=== PATIENT | female | born 1930 | race Caucasian/White ===

== ENCOUNTER 2016-12-28 10:49 | Emergency (ER) | payer MEDICARE, OTHER ==
[2016-12-28] MEDS ORDERED: ALTEPLASE 100 MG VIAL IV ONE ×3 (11:07→11:19)
[2016-12-28] MEDS ORDERED: ALTEPLASE 1 MG UNIT IV ONE (11:13)
[2016-12-28 11:14] LABS: Hematocrit 41.2 % (37.0-47.0); Hemoglobin 14.5 gm/dL (12.5-16.0); Mean Cell Volume 92.2 fl (78-100); Mean Corpuscular Hemoglobin 32.4 pg (27-31); Mean Corpuscular Hgb Conc 35.2 g/dl (32-36); Mean Platelet Volume 9.5 fl (6.0-9.5); Neutrophil # 9.6 K/mm3 (1.3-6.0); Neutrophil % 81.8 % (42-75.0); Platelet Count 358 K/mm3 (150-450); Red Blood Count 4.47 M/mm3 (4.2-5.4); Red Cell Distribution Width 12.4 % (11.5-14.0); White Blood Count 11.7 K/mm3 (4.0-10.5)
[2016-12-28 11:25] LABS: INR 0.98 INR (0.90-1.10); Prothrombin Time (Patient) 10.2 Seconds (9.4-11.4)
[2016-12-28 11:27] LABS: Albumin * 3.1 gm/dl (3.4-5.0); Anion Gap 14.6 mmol/L (6.8-13.8); BUN/Creatinine Ratio 15.3 (9.0-21.6); Bilirubin, Total 0.8 mg/dL (0.0-1.1); Ca. Corrected For Albumin 9.5 mg/dL (8.4-10.2); Calcium * 9.1 mg/dL (7.9-10.9); Carbon Dioxide 24.5 mmol/L (24-32.6); Potassium 5.1 mmol/L (3.4-4.6); Total Protein 6.9 gm/dL (6.2-8.2)
--- NOTE | 2016-12-28 11:45 | ERNOTE ---
Neuro HPI ER Record Presenting Symptoms: weakness, facial droop, impaired speech, difficulty walking Source: patient, family, EMS Exam Limitations: clinical condition Immunizations: IMMUNIZATION HX Immunizations Up to Date Yes History of Influenza Vaccine Yes Hx Pneumococcal Vaccination Yes Allergies/Adverse Reactions: Allergies Allergy/AdvReac Type Severity Reaction Status Date / Time No Known Allergies Allergy Unverified 12/28/16 11:04 Home Medications: HOME MEDICATIONS Aspirin [Ecotrin] 81 mg PO DAILY 12/12/13 [Last Taken 12/19/13 21:00] Biotin 1 mg PO DAILY 12/12/13 [Last Taken 12/12/13 0900] Lovastatin 40 mg PO DAILY 12/12/13 [Last Taken 12/12/13 09:00] Meloxicam [Mobic] 15 mg PO DAILY 12/12/13 [Last Taken 12/12/13 09:00] FLUoxetine HCL [Fluoxetine HCl] 20 mg PO DAILY 12/28/16 [Last Taken Unknown] Sulfamethoxazole/Trimethoprim [Bactrim Ds] 1 tab PO BID 12/28/16 [Last Taken Unknown] - History of Present Illness Narrative: We received varying reports as to the time of the onset of symptoms. However the daughter states that somewhere between 10 and actually 10:30 mother suddenly developed facial droop and right-sided weakness and speech that appeared to be somewhat impaired. Patient continues to have the right-sided weakness and right-sided facial droop and dysarthric speech. Prior to this episode mother was at her baseline and none of these symptoms are present according to the daughter. Onset: sudden onset Severity: severe - Character of Deficits Additional Deficits: Present: cannot walk, cannot stand Baseline Cognition: Present: alert, oriented x 4 Baseline Gait: Present: walks w/o assistance Associated Symptoms: Reports: none Review of Systems - Review of Systems Constitutional: Present: See HPI EYE: Present: no symptoms reported ENT: Present: no symptoms reported Respiratory: Present: no symptoms reported Cardiology: Present: no symptoms reported Gastrointestinal/Abdominal: Present: no symptoms reported Genitourinary: Present: no symptoms reported Musculoskeletal: Present: no symptoms reported Skin: Present: no symptoms reported Neurological: Present: See HPI Endocrine: Present: no symptoms reported Hematologic/Lymphatic: Present: no symptoms reported Psych: Present: no symptoms reported - Patient's Past Medical History Patient History - Medical: 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 Patient History - Cardiac/Respiratory: CVA/Stroke, Hypertension, Hyperlipidemia Patient History - Cancer: Melanoma Patient History - Surgical Procedures: Colonoscopy Patient History - Other: None LMP (females 10-50): Menopausal - Social History Living Situations: home Abuse History: No History of abuse Psych History: Hx of Depression, Current tx/ever been on anti-depressants or anti-anxiety meds Smoking Status: Never smoker Alcohol Use: none Drug Use: none - Immunizations Immunizations Up to Date: Yes Hx Pneumococcal Vaccination: Yes History of Influenza Vaccine: Yes Physical Exam - Physical Exam General Appearance: Present: wd/wn, alert, moderate distress Eye Exam: Normal inspection: bilateral, PERRL: bilateral Ears, Nose, Throat: Present: normal pharynx, other - right sided facial droop and dysarthric speech Neck: Present: normal inspection, nontender Respiratory: Present: no respiratory distress, normal breath sounds, no accessory muscle use, chest nontender, lungs clear Cardiovascular/Chest: Present: regular rate, rhythm, no murmur, normal peripheral pulses, bradycardia Gastrointestinal/Abdominal: Present: normal bowel sounds, nontender, nondistended, soft, no organomegaly Rectal Exam: Present: deferred Back Exam: Present: normal inspection, normal range of motion Extremity Exam: Present: normal inspection, non-tender, no edema, normal range of motion Neurological Exam: Present: alert, oriented, normal mood/affect, facial droop, motor weakness - right sided with an NIH scale of 15 Skin Exam: Present: normal color, warm/dry Lymphatic Exam: Present: no adenopathy Devon Coma Scale - Assess Eye Opening: Spontaneous Motor: Obeys Commands Verbal: Oriented - Total Coma Scale Total: 15 ED Progress - Results and Orders Patient's Lab Results:: I have reviewed the patient's lab results. - Vital Signs Patient's Vital Signs:: I have reviewed the patient's vital signs. Vital Signs: Vital Signs 12/28/16 10:51 Temperature 36.1 C L Pulse Rate 72 Respiratory 18 Rate Blood Pressure 158/74 O2 Sat by Pulse 98 Oximetry - X-Ray X-Ray #1 X-Ray: chest Interpretation: Reviewed by me - CT/Ultrasound CT/Ultrasound Narrative: CT head was reviewed - Progress/Reassessment Chief Complaint: CerebroVascular Accident Progress:: Unchanged Plan - Plan Plan: I discussed the case with Dr. Meyer at the [facility] and the patient had TPA bolus given here, a TPA drip was started and she'll be transferred to [facility] to the care of the stroke team and Dr. Meyer there. The entire time the patient was in the ED was all critical care and all activities were devoted to Lorraine Avila. 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 Unclear etiology for the hyponatremia that was just reported to me from the lab, they said that it was 120 which is somewhat of a new finding for her. A TPA bolus and TPA drip was started here in the ED and patient will be transferred expeditiously to the [facility] will. While normally we would fly please patient's due to inclement weather in [place] patient will be driven by ambulance.
[2016-12-28 12:06] VITALS: BP 148/80
== END 2016-12-28 11:55 | disposition short-term general hospital (02) ==
LOC: ER 10:49
DX: I63.40 Cerebral infarction due to embolism of unspecified cerebral artery (principal); E87.1 Hypo-osmolality and hyponatremia